=== PATIENT | female | born 1985 | race Two or more races ===

== ENCOUNTER → 2023-05-02 08:00 | Outpatient (CLI) | payer OTHER ==
[~2023-05-02] VITALS: Ht 165.1 cm; Wt 68.0 kg
[2023-05-02 13:48] LABS: PH,URINE 5.5 (5.0-8.0); URINE APPEARANCE Clear; URINE BILIRRUBIN Negative (NEGATIVE); URINE BLOOD Small; URINE COLOR Yellow; URINE GLUCOSE Negative (NEGATIVE); URINE LEUKOCYTE Negative; URINE NITRATE Negative; URINE PROTEIN Negative (NEGATIVE); URINE UROBILINOGEN 0.2 E.U./dl
[2023-05-02 13:52] LABS: URINE EPITHELIAL CELLS 42.2 uL (0.0-38.8); URINE RBC 8.1 uL (0.0-20.8); URINE WBC 55.6 uL (0.0-23.2)
[2023-05-02 14:02] LABS: HEMATOCRIT 38.5 % (36.0-45.00); HEMOGLOBIN 13.6 g/dL (12.0-15.00); MEAN CELL VOLUME 92.7 fL (80.00-100.00); MEAN CORPUSCULAR HEMOGLOBIN 32.7 pg (27.00-32.0); MEAN CORPUSCULAR HGB CONC 35.3 g/dl (32.0-36.0); PLATELET COUNT 224 K/uL (150-450); RED BLOOD COUNT 4.15 M/uL (4.00-6.00); RED CELL DISTRIBUTION WIDTH 12.6 % (11.5-14.5)
[2023-05-02 14:26] LABS: PARTIAL THROMBOPLASTIN TIME 31.1 SECONDS (22.0-34.0); PROTHROMBIN TIME 10.5 SECONDS (9.0-11.5)
[2023-05-02 14:28] LABS: MYCOPLASMA PNEUMONIAE IGM REACTIVE (NO REACTIVE)
[2023-05-02 14:30] LABS: ALBUMIN 3.3 gm/dL (3.4-5.0); BILIRUBIN TOTAL 0.23 mg/dL (0.3-1.2); CALCIUM 8.9 mg/dL (8.5-10.1); CREATININE SERUM 0.5 mg/dL (0.55-1.02); GFR 140.4; GLOBULINA 3.7 G/DL (2.4-3.5); POTASSIUM 4.3 mEq/L (3.5-5.1)
== END | disposition home or self-care (01) ==
LOC: LAB 08:00 → ADM 10:45 → CIR.AMB 05-07 08:30 → EDSTATUS 05-07 10:45 → CIR.AMB 05-07 10:45
PROVIDERS: ATTEND General Practice
DX: O02.1 Missed abortion (principal); J10.1 Influenza due to other identified influenza virus with other respiratory manifestations; A49.3 Mycoplasma infection, unspecified site; Z20.822 Contact with and (suspected) exposure to COVID-19

== ENCOUNTER 2023-05-06 08:29 | Emergency (ER) | payer OTHER ==
[~2023-05-06] VITALS: Ht 165.1 cm; Wt 68.0 kg
[2023-05-06 09:34] LABS: HEMATOCRIT 35.7 % (36.0-45.00); HEMOGLOBIN 12.4 g/dL (12.0-15.00); MEAN CELL VOLUME 93.8 fL (80.00-100.00); MEAN CORPUSCULAR HEMOGLOBIN 32.6 pg (27.00-32.0); MEAN CORPUSCULAR HGB CONC 34.8 g/dl (32.0-36.0); PLATELET COUNT 248 K/uL (150-450); RED CELL DISTRIBUTION WIDTH 11.9 % (11.5-14.5)
[2023-05-06 10:17] LABS: INR 0.99; PARTIAL THROMBOPLASTIN TIME 29.3 SECONDS (22.0-34.0); PROTHROMBIN TIME 10.4 SECONDS (9.0-11.5)
[2023-05-06 10:21] LABS: CREATININE SERUM 0.64 mg/dL (0.55-1.02); GFR 105.6; POTASSIUM 3.76 mEq/L (3.5-5.1)
[2023-05-06 10:51] LABS: URINE APPEARANCE Cloudy; URINE BILIRRUBIN Negative (NEGATIVE); URINE BLOOD Large; URINE COLOR Yellow; URINE GLUCOSE Negative (NEGATIVE); URINE LEUKOCYTE Small; URINE NITRATE Negative; URINE PROTEIN Negative (NEGATIVE); URINE UROBILINOGEN 0.2 E.U./dl
[2023-05-06 10:56] LABS: URINE BACTERIA 2329.6 uL (0.0-1933); URINE EPITHELIAL CELLS 89.1 uL (0.0-38.8); URINE RBC 225.4 uL (0.0-20.8); URINE WBC 48.3 uL (0.0-23.2)
== END 2023-05-06 16:55 | disposition home or self-care (01) ==
LOC: ER 08:30
PROVIDERS: General Practice
DX: O02.1 Missed abortion (principal)

== ENCOUNTER 2024-06-09 08:25 | Outpatient (CLI) | payer OTHER | END 2024-06-09 08:27 | disposition home or self-care (01) | LOC: PRENATAL 08:25 | PROVIDERS: ATTEND Obstetrics & Gynecology Maternal & Fetal Medicine | DX: O36.80X0 Pregnancy with inconclusive fetal viability, not applicable or unspecified (principal); Z36.82 Encounter for antenatal screening for nuchal translucency; Z14.8 Genetic carrier of other disease; O09.529 Supervision of elderly multigravida, unspecified trimester; Z3A.11 11 weeks gestation of pregnancy ==

== ENCOUNTER → 2024-08-04 08:14 | Outpatient (CLI) | payer OTHER | END | disposition home or self-care (01) | LOC: PRENATAL 08:14 | PROVIDERS: ATTEND Obstetrics & Gynecology Maternal & Fetal Medicine | DX: O44.00 Complete placenta previa NOS or without hemorrhage, unspecified trimester (principal); O09.529 Supervision of elderly multigravida, unspecified trimester; Z3A.20 20 weeks gestation of pregnancy ==

== ENCOUNTER → 2024-08-22 | Emergency (ER) | payer OTHER ==
[~2024-08-22] VITALS: Ht 165.1 cm; Wt 68.0 kg
[~2024-08-22] MED LIST: PRENATAL 19 CH1 EACH PO
[2024-08-22 12:41] VITALS: BP 100/68; O2SAT 100
== END | disposition left against medical advice (07) ==
LOC: ER 10:56
DX: Z53.21 Procedure and treatment not carried out due to patient leaving prior to being seen by health care provider (principal)

== ENCOUNTER → 2024-11-01 09:00 | Outpatient (CLI) | payer OTHER | END | disposition home or self-care (01) | LOC: PRENATAL 09:00 | PROVIDERS: ATTEND Obstetrics & Gynecology Maternal & Fetal Medicine | DX: O26.849 Uterine size-date discrepancy, unspecified trimester (principal); O36.8199 Decreased fetal movements, unspecified trimester, other fetus; O09.529 Supervision of elderly multigravida, unspecified trimester; O24.419 Gestational diabetes mellitus in pregnancy, unspecified control; Z3A.33 33 weeks gestation of pregnancy ==

== ENCOUNTER → 2024-11-25 12:08 | Outpatient (CLI) | payer OTHER | END | disposition home or self-care (01) | LOC: PRENATAL 12:08 | PROVIDERS: ATTEND Obstetrics & Gynecology Maternal & Fetal Medicine | DX: O26.849 Uterine size-date discrepancy, unspecified trimester (principal); O36.8199 Decreased fetal movements, unspecified trimester, other fetus; O09.529 Supervision of elderly multigravida, unspecified trimester; O24.419 Gestational diabetes mellitus in pregnancy, unspecified control; Z3A.35 35 weeks gestation of pregnancy ==

== ENCOUNTER 2024-12-08 13:45 | Inpatient (IN) | payer OTHER ==
[~2024-12-08] VITALS: Ht 165.1 cm; Wt 3.2 kg
[2024-12-08 15:17] LABS: URINE APPEARANCE Cloudy; URINE BILIRRUBIN Negative (NEGATIVE); URINE BLOOD Negative; URINE COLOR Yellow; URINE GLUCOSE Negative (NEGATIVE); URINE KETONE Negative (NEGATIVE); URINE LEUKOCYTE Negative; URINE NITRATE Negative; URINE PROTEIN Negative (NEGATIVE); URINE UROBILINOGEN 1.0 E.U./dl
[2024-12-08 15:20] LABS: URINE BACTERIA 164.3 uL (0.0-1933); URINE EPITHELIAL CELLS 16.4 uL (0.0-38.8); URINE RBC 2.7 uL (0.0-20.8); URINE WBC 8.1 uL (0.0-23.2)
[2024-12-08 15:21] LABS: URINE CAST 0.00 uL (0.0-1.40)
[2024-12-08 15:28] LABS: BASO % 0.1 % (0.1-1.2); EOS # 0.09 (0.04-0.54); EOS % 1.2 % (0.7-7.0); LYMPH # 1.55 (1.18-3.74); LYMPH % 20.7 % (19.3-53.1); MEAN PLATELET VOLUME 10.80 fl (9.4-12.4); MONO # 0.84 (0.24-0.82); MONO % 11.2 % (4.7-12.5); NEUT # 4.98 (1.56-6.13); NEUT % 66.4 % (34.0-71.1); RED CELL DISTRIBUTION WIDTH 12.6 % (11.6-14.4)
[2024-12-08 15:42] LABS: INR < 0.93
[2024-12-08 15:47] LABS: ALT/SGPT 18.0 U/L (12-78); AST/SGOT 13.0 U/L (15-37); BILIRUBIN TOTAL 0.19 mg/dL (0.3-1.2); BUN CREA RATIO 22.0 (7.0-25.0); CREATININE SERUM 0.46 mg/dL (0.55-1.02); GFR 152.85; GLOBULINA 3.5 G/DL (2.4-3.5); GLUCOSE FASTING 110.0 mg/dL (65-100); OSMOLALITY SERUM 281.0 MOSM/KG (275-295)
[2024-12-27 06:30] VITALS: BP 96/66
[2024-12-27] MEDS ORDERED: RINGERS SOLUTION,LACTATED 1,000 ML IV SCH (07:00)
[2024-12-27 07:17] LABS: URINE APPEARANCE Clear; URINE BILIRRUBIN Negative (NEGATIVE); URINE BLOOD Negative; URINE COLOR Yellow; URINE GLUCOSE Negative (NEGATIVE); URINE KETONE Negative (NEGATIVE); URINE LEUKOCYTE Small; URINE NITRATE Negative; URINE PROTEIN Negative (NEGATIVE); URINE UROBILINOGEN 0.2 E.U./dl
[2024-12-27 07:18] LABS: URINE BACTERIA 947.9 uL (0.0-1933); URINE EPITHELIAL CELLS 68.6 uL (0.0-38.8); URINE RBC 3.6 uL (0.0-20.8); URINE WBC 22.1 uL (0.0-23.2)
[2024-12-27 07:31] LABS: URINE CAST 0.00 uL (0.0-1.40)
[2024-12-27 07:35] VITALS: BP 111/64
[2024-12-27 07:51] LABS: ALT/SGPT 24.0 U/L (12-78); AST/SGOT 18.0 U/L (15-37); BASO % 0.3 % (0.1-1.2); BILIRUBIN TOTAL 0.21 mg/dL (0.3-1.2); BUN CREA RATIO 16.0 (7.0-25.0); CREATININE SERUM 0.51 mg/dL (0.55-1.02); EOS # 0.10 (0.04-0.54); EOS % 1.3 % (0.7-7.0); GFR 135.69; GLOBULINA 3.6 G/DL (2.4-3.5); GLUCOSE FASTING 134.0 mg/dL (65-100); LYMPH # 1.71 (1.18-3.74); LYMPH % 21.4 % (19.3-53.1); MEAN PLATELET VOLUME 11.50 fl (9.4-12.4); MONO # 0.68 (0.24-0.82); MONO % 8.5 % (4.7-12.5); NEUT # 5.45 (1.56-6.13); NEUT % 68.1 % (34.0-71.1); OSMOLALITY SERUM 283.0 MOSM/KG (275-295); RED CELL DISTRIBUTION WIDTH 12.3 % (11.6-14.4)
[2024-12-27 07:52] LABS: INR < 0.93
[2024-12-27] MEDS ORDERED: MISOPROSTOL 25 MCG/4 ML GEL.W.APPL VAG ONE ×4 (08:15→21:15)
[2024-12-27 11:29] VITALS: BP 118/67
[2024-12-27 15:27] VITALS: BP 116/65
[2024-12-27 20:01] VITALS: BP 118/64
[2024-12-27 23:39] VITALS: BP 114/68
[2024-12-28 03:19] VITALS: BP 103/69
[2024-12-28] MEDS ORDERED: OXYTOCIN 500 ML IV SCH (07:15)
[2024-12-28 07:37] VITALS: BP 112/71
[2024-12-28] MEDS ORDERED: CEFAZOLIN SODIUM 1,000 MG VIAL IV ONE (11:15)
[2024-12-28] MEDS ORDERED: ONDANSETRON HCL 2 MG/ML VIAL IV PRN (13:15)
[2024-12-28] MEDS ORDERED: OXYTOCIN 1,000 ML IV SCH (13:15)
[2024-12-28] MEDS ORDERED: CHLORHEXIDINE GLUCONATE 120 ML BOTTLE TP NR (13:15)
[2024-12-28] MEDS ORDERED: KETOROLAC TROMETHAMINE 30 MG VIAL IV NR (13:15)
[2024-12-28] MEDS ORDERED: MORPHINE SULFATE 4 MG/ML CARTRIDGE IV PRN (13:15)
[2024-12-28] MEDS ORDERED: RINGERS SOLUTION,LACTATED 1,000 ML IV SCH (13:15)
[2024-12-28] MEDS ORDERED: MORPHINE SULFATE 4 MG/ML VIAL IV ONE ×2 (13:40→15:50)
[2024-12-28] MEDS ORDERED: ERYTHROMYCIN BASE OPHT 1GM EACH TUBE OP ONE (14:00)
[2024-12-28] MEDS ORDERED: OXYTOCIN 20 UNITS/1000ML RL PIGGYBAG IV ONE (14:00)
[2024-12-28 17:19] VITALS: BP 116/73
[2024-12-28] MEDS ORDERED: SIMETHICONE 125 MG CAPSULE PO SCH (18:00)
[2024-12-28] MEDS ORDERED: ACETAMINOPHEN 325 MG TABLET PO SCH (18:00)
[2024-12-28] MEDS ORDERED: KETOROLAC TROMETHAMINE 30 MG VIAL IV SCH (20:00)
[2024-12-29] VITALS: BP 98/60
[2024-12-29] MEDS ORDERED: OxyCODONE HCL 5 MG TABLET (ROXICODONE) PO PRN (06:00)
[2024-12-29 07:07] LABS: BASO % 0.2 % (0.1-1.2); EOS # 0.04 (0.04-0.54); EOS % 0.4 % (0.7-7.0); LYMPH # 1.29 (1.18-3.74); LYMPH % 12.6 % (19.3-53.1); MEAN PLATELET VOLUME 11.20 fl (9.4-12.4); MONO # 1.00 (0.24-0.82); MONO % 9.8 % (4.7-12.5); NEUT # 7.83 (1.56-6.13); NEUT % 76.6 % (34.0-71.1); RED CELL DISTRIBUTION WIDTH 12.4 % (11.6-14.4)
[2024-12-29 09:17] VITALS: BP 100/55
[2024-12-29 17:51] VITALS: BP 126/77
[2024-12-30 00:50] VITALS: BP 105/68
[2024-12-30 08:00] VITALS: BP 119/76
== END 2024-12-30 13:09 | disposition home or self-care (01) | DRG 788 ==
LOC: LDR 12-22 13:45 → OB/GYN 12-28 12:53
PROVIDERS: ADMIT Obstetrics & Gynecology; ATTEND Obstetrics & Gynecology
PROC: 3E0P7VZ Introduction of Hormone into Female Reproductive, Via Natural or Artificial Opening (ICD-10-PCS; 2024-12-27)
PROC: 4A1HXCZ Monitoring of Products of Conception, Cardiac Rate, External Approach (ICD-10-PCS; 2024-12-27)
PROC: 3E033VJ Introduction of Other Hormone into Peripheral Vein, Percutaneous Approach (ICD-10-PCS; 2024-12-28)
PROC: 10D00Z1 Extraction of Products of Conception, Low, Open Approach (ICD-10-PCS; principal; 2024-12-28 12:45)
DX: O36.8130 Decreased fetal movements, third trimester, not applicable or unspecified (principal); O24.420 Gestational diabetes mellitus in childbirth, diet controlled; Z3A.40 40 weeks gestation of pregnancy; Z37.0 Single live birth